=== PATIENT | female | born 2005 | race African-American/Black ===

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

== ENCOUNTER 2024-02-25 04:13 | Day surgery (SDC) | payer OTHER ==
[2024-02-18 16:05] VITALS: BMI 36.0
[2024-02-25] MEDS ORDERED: PHENAZOPYRIDINE HCL 100 MG TABLET (FP) ONE (08:02)
[2024-02-25] MEDS: PHENAZOPYRIDINE HCL 100 MG TABLET (FP) PO ONE (08:03)
[2024-02-25] MEDS ORDERED: CEFAZOLIN 2 GM in DEXTROSE 5%-WATER - 100 ML IVPB ONE (09:00)
[2024-02-25] MEDS ORDERED: ACETAMINOPHEN 1000 MG/100 ML BAG IVPB ONE (09:00)
[2024-02-25] MEDS ORDERED: PROPOFOL 40 ML ONE (10:17)
[2024-02-25] MEDS ORDERED: MIDAZOLAM HCL 2 MG/2 ML SINGLE DOSE VIAL ONE (10:18)
[2024-02-25] MEDS ORDERED: ROCURONIUM BROMIDE 50 MG/5 ML SYRINGE ONE (10:18)
[2024-02-25] MEDS ORDERED: SUCCINYLCHOLINE CHLORIDE 200 MG/10 ML SYRINGE ONE (10:18)
[2024-02-25] MEDS: ceFAZolin SODIUM 1 GM VIAL IVPB ONE ×2 (10:58)
[2024-02-25] MEDS ORDERED: NEOSTIGMINE METHYLSULFATE 0.5 MG/1 ML - 10 ML MDV ONE (12:43)
[2024-02-25] MEDS ORDERED: GLYCOPYRROLATE 0.2 MG/1 ML VIAL ONE ×2 (12:43)
[2024-02-25 14:06] LABS: HEMATOCRIT 35.6 % (32.4-45.2); HEMOGLOBIN 11.7 GM/dL (10.7-15.3); MCH 30.4 pg (25.7-33.7); MCHC 32.9 g/dl (32.0-36.0); MEAN CELL VOLUME 92.5 fl (80-96); MEAN PLT VOLUME 7.5 fl (7.5-11.1); PLATELET COUNT 359 10^3/uL (134-434); RBC 3.85 M/mm3 (3.60-5.2); RDW 12.2 % (11.6-15.6); WHITE BLOOD COUNT 11.6 K/mm3 (4.0-10.0)
[2024-02-25] MEDS ORDERED: ONDANSETRON 4 MG/2 ML VIAL IVPUSH PRN (14:19)
[2024-02-25] MEDS ORDERED: LACTATED RINGERS SOLUTION 1,000 ML IV SCH (14:30)
[2024-02-25 14:39] LABS: ANISOCYTOSIS 0; MACROCYTOSIS 0
[2024-02-25 14:41] LABS: PLATELET ESTIMATE ADEQUATE
[2024-02-25 15:26] VITALS: RESP 18
[2024-02-25 17:17] VITALS: BP 120/67; PULSE 90; TEMP 97.5
== END 2024-02-25 18:20 | disposition home or self-care (01) ==
LOC: JASU-SURG 04:13
PROVIDERS: ATTEND Obstetrics & Gynecology
PROC: 8E0W4CZ Robotic Assisted Procedure of Trunk Region, Percutaneous Endoscopic Approach (ICD-10-PCS; 2024-02-25)
PROC: 0UB24ZZ Excision of Bilateral Ovaries, Percutaneous Endoscopic Approach (ICD-10-PCS; principal; 2024-02-25 09:30)
DX: N83.201 Unspecified ovarian cyst, right side (principal); N83.202 Unspecified ovarian cyst, left side; D27.0 Benign neoplasm of right ovary; D27.1 Benign neoplasm of left ovary
CPT/HCPCS: 58662; S2900; 36415; 81025; 85025; 86850; 86900; 86901; 88108; 88305-TC; 88307-TC; 94760